=== PATIENT | female | born 1995 | race Two or more races ===

== ENCOUNTER 2018-06-07 08:52 | Emergency (ER) | payer MEDICAID, OTHER ==
--- NOTE | 2018-06-07 10:26 | UC ---
Abdominal Pain Female HPI - HPI Summary HPI Summary: 2 DAYS OF SUPRAPUBIC AND LEFT PELVIC DISCOMFORT. DESCRIBED A BURNING PAIN. DENIES ANY URINARY SYMPTOMS. NO FEVER OR NAUSEA. NO BACK PAIN. NO VAGINAL DISCHARGE. SHE HAS NOT HAD SEX IN OVER 3 MONTHS. HAS A FAMILY HISTORY OF OVARIAN CYSTS. - History of Current Complaint Chief Complaint: EDAbdPain Stated Complaint: PAIN ABOVE PELVIC AREA Time Seen by Provider: 06/07/18 09:37 Hx Obtained From: Patient Hx Last Menstrual Period: 05/14/18 Onset/Duration: Gradual Onset, Lasting Days, Still Present Timing: Constant Severity Initially: Moderate Severity Currently: Moderate Pain Intensity: 6 Pain Scale Used: 0-10 Numeric Location: Discrete At: LLQ, Suprapubic Radiates: No Character: Burning Aggravating Factor(s): Movement Alleviating Factor(s): Nothing Associated Signs and Symptoms: Negative: Diaphoresis, Fever, Back Pain, Constipation, Blood in Stool, Urinary Symptoms, Vaginal Bleeding, Vaginal Discharge, Nausea Allergies/Adverse Reactions: Allergies Allergy/AdvReac Type Severity Reaction Status Date / Time No Known Allergies Allergy Verified 06/07/18 09:06 Home Medications: Home Medications NK [No Home Medications Reported] 06/07/18 [History Confirmed 06/07/18] PMH/Surg Hx/FS Hx/Imm Hx Previously Healthy: Yes - Surgical History Surgical History: Yes Surgery Procedure, Year, and Place: [facility] 2010 - Family History Known Family History: Negative: Hypertension Family History: OVARIAN CYSTS - SISTER - Social History Alcohol Use: None Substance Use Type: None Substance Use Comment - Amount & Last Used: DAILY Smoking Status (MU): Never Smoked Tobacco Review of Systems Constitutional: Negative Skin: Negative Respiratory: Negative Cardiovascular: Negative Gastrointestinal: Abdominal Pain - SUPRAPUBIC Genitourinary: Negative All Other Systems Reviewed And Are Negative: Yes Physical Exam Triage Information Reviewed: Yes Appearance: Well-Appearing, No Pain Distress, Well-Nourished Vital Signs: Initial Vital Signs Temp 98 F 06/07/18 09:00 Pulse 70 06/07/18 09:00 Resp 16 06/07/18 09:00 BP 100/52 06/07/18 09:00 Pulse Ox 100 06/07/18 09:00 Laboratory Tests 06/07/18 06/07/18 09:41 09:43 POC Urine Color Marleni POC Urine Clarity Clear POC Urine pH 7.0 POC Ur Specif [place] 1.020 POC Urine Protein Negative POC Ur Glucose (UA) Negative POC Urine Ketones Negative POC Urine Blood Negative POC Urine Nitrite Negative POC Urine Bilirubin Negative POC Urine Urobilinogen 0.2 POC U Leukocyte Esteras Negative POC Ur Test Negative Vital Signs Reviewed: Yes Eyes: Positive: Conjunctiva Clear ENT: Positive: Hearing grossly normal Neck: Positive: Supple Respiratory Exam: Normal Cardiovascular Exam: Normal Abdomen Description: Positive: Soft, Other: - MILDLY TTP SUPRAPUBIC AND LLQ. Negative: CVA Tenderness (R), CVA Tenderness (L), Distended, Guarding Bowel Sounds: Positive: Present Pelvic Exam: Positive: External Exam Normal, Speculum Exam Normal, Bimanual Exam Normal, No Cerv. Motion Tender, No Masses, Discharge - THIN WHITE D/C IN VAGINAL VAULT Musculoskeletal: Positive: No Edema Neurological: Positive: Alert Psychological: Positive: Age Appropriate Behavior Skin: Negative: rashes Diagnostics - Radiology TRANSVAGINAL US Xray Interpretation: Positive (See Comments) - INVOLUTING FOLLICLE VERSUS HEMORRHAGIC CYST OF LEFT OVARY MEASURING UP TO 1.9 CM. Radiology Interpretation Completed By: Radiologist Abd Pain Female Course/Dx - Differential Dx/Diagnosis Provider Diagnoses: HEMORRHAGIC CYST OF LEFT OVARY Discharge - Sign-Out/Discharge Documenting (check all that apply): Patient Departure All imaging exams completed and their final reports reviewed: Yes - Discharge Plan Condition: Stable Disposition: HOME Patient Education Materials: Ovarian Cyst (ED) Referrals: [facility] [Provider Group] - 2 Weeks Humberto Hay MD [Primary Care Provider] - If Needed Additional Instructions: ULTRASOUND SHOWS INVOLUTING FOLLICLE VERSUS HEMORRHAGIC CYST OF LEFT OVARY. THIS MAY BE CAUSING YOUR DISCOMFORT. OTC MEDS NEEDED FOR PAIN. FOLLOW-UP WITH PCP OR [facility] FOR FURTHER DISCUSSION OF MANAGEMENT. IF SYMPTOMS BECOME RECURRENT YOU MAY CONSIDER HORMONAL CONTROL. VAGINAL SWABS FOR VAGINITIS AND GC/CHLAMYDIA DONE TODAY. WE WILL CALL YOU WITH ANY ABNORMAL RESULTS. - Billing Disposition and Condition Condition: STABLE Disposition: Home
[2018-06-07 11:24] VITALS: BP 102/49
--- NOTE | 2018-06-07 12:22 | RAD ---
HISTORY: PELVIC PAIN COMPARISONS: None TECHNIQUE: Multiple transverse and longitudinal ultrasound images were obtained of the pelvis using grayscale, color Doppler, and spectral Doppler imaging using the endovaginal transducer. FINDINGS: UTERUS: The uterus measures 7. 4 x 4 by 5.8 cm. The uterus is normal in shape, size, contour, and echotexture. ENDOMETRIUM: The endometrial stripe is smooth. The endometrium measures 1.1 cm in thickness. There is an arcuate configuration to the endometrial cavity. CUL-DE-SAC: There is no free fluid within the cul-de-sac. RIGHT OVARY: The right ovary measures 4.1 x 2.2 x 2.8 cm. Normal arterial and venous waveforms are identifiable within the ovary on spectral Doppler imaging. LEFT OVARY: The left ovary measures 4.6 x 2.5 x 3.7 cm. Normal arterial and venous waveforms are identifiable within the ovary on spectral Doppler imaging. There is a 1.9 x 1.6 x 1.2 cm involuting follicle versus hemorrhagic cyst of the left ovary.. BLADDER: The bladder is not well visualized. OTHER: None IMPRESSION: 1. NO SONOGRAPHIC FEATURES OF TORSION. PLEASE NOTE THAT PARTIAL OR INTERMITTENT TORSION MAY BE SONOGRAPHICALLY NORMAL. 2. INVOLUTING FOLLICLE VERSUS HEMORRHAGIC CYST OF LEFT OVARY MEASURING UP TO 1.9 CM.
--- NOTE | 2018-06-08 13:38 | UC ---
- Progress Note Progress Note: PLEASE CALL PATIENT. VAGINAL SWAB POSITIVE FOR BV. METRONIDAZOLE TWICE DAILY FOR [address] [facility]. NO ALCOHOL WHILE ON THIS MEDICATION. - GENE BOATENG M.D. Discharge - Sign-Out/Discharge Documenting (check all that apply): Post-Discharge Follow Up All imaging exams completed and their final reports reviewed: Yes - Discharge Plan Condition: Stable Disposition: HOME Prescriptions: metroNIDAZOLE [Flagyl 500 MG TAB] 500 mg PO BID #14 tab Patient Education Materials: Ovarian Cyst (ED) Referrals: [facility] [Provider Group] - 2 Weeks Humberto Hay MD [Primary Care Provider] - If Needed Additional Instructions: ULTRASOUND SHOWS INVOLUTING FOLLICLE VERSUS HEMORRHAGIC CYST OF LEFT OVARY. THIS MAY BE CAUSING YOUR DISCOMFORT. OTC MEDS NEEDED FOR PAIN. FOLLOW-UP WITH PCP OR [facility] FOR FURTHER DISCUSSION OF MANAGEMENT. IF SYMPTOMS BECOME RECURRENT YOU MAY CONSIDER HORMONAL CONTROL. VAGINAL SWABS FOR VAGINITIS AND GC/CHLAMYDIA DONE TODAY. WE WILL CALL YOU WITH ANY ABNORMAL RESULTS. - Billing Disposition and Condition Condition: STABLE Disposition: Home
== END 2018-06-07 12:43 | disposition home or self-care (01) ==
LOC: UCEAST 08:52
DX: N83.202 Unspecified ovarian cyst, left side (principal)
CPT/HCPCS: 76830; 81003; 84702; 87480; 87491; 87510; 87591; 87661; 99211; G0463

== ENCOUNTER 2019-02-06 09:19 | Emergency (ER) | payer SELFPAY ==
[2019-02-06 09:27] VITALS: BP 112/72
[2019-02-06] MEDS ORDERED: Ondansetron INJ* 2 MG/ML VIAL IV ONE (09:39)
[2019-02-06] MEDS ORDERED: NS 0.9% 1000 ML** 1,000 ML IV ONE (09:39)
--- NOTE | 2019-02-06 09:44 | UC ---
Abdominal Pain Female HPI - HPI Summary HPI Summary: 23-year-old woman comes in with chief complaint of lower abdominal pain heavy vaginal bleeding nausea vomiting. This all started this morning. Patient gives no history. She is awake and follows commands and will stand however she does not answer questions. This appears to be secondary to pain. Her partner is here with her and he does give history.. - History of Current Complaint Chief Complaint: UCAbdominalPain Stated Complaint: VOMITING Time Seen by Provider: 02/06/19 09:36 Hx Last Menstrual Period: now Pain Intensity: 8 Allergies/Adverse Reactions: Allergies Allergy/AdvReac Type Severity Reaction Status Date / Time No Known Allergies Allergy Verified 02/06/19 09:27 Home Medications: Home Medications NK [No Home Medications Reported] 02/06/19 [History Confirmed 02/06/19] PMH/Surg Hx/FS Hx/Imm Hx Previously Healthy: Yes - Surgical History Surgical History: Yes Surgery Procedure, Year, and Place: [facility] 2010 - Family History Known Family History: Positive: None Negative: Hypertension Family History: OVARIAN CYSTS - SISTER - Social History Alcohol Use: Occasionally Substance Use Type: None Substance Use Comment - Amount & Last Used: DAILY Smoking Status (MU): Never Smoked Tobacco Review of Systems All Other Systems Reviewed And Are Negative: No Constitutional: Positive: Other - SEE HPI PATIENT. NOT ANSWERING QUESTIONS; LEVEL 5 CAVEAT Gastrointestinal: Positive: Abdominal Pain Is Patient Immunocompromised?: No Physical Exam Triage Information Reviewed: Yes Appearance: Well-Nourished, Ill-Appearing, Pain Distress Vital Signs: Initial Vital Signs Temp 97.1 F 02/06/19 09:22 Pulse 67 02/06/19 09:22 Resp 20 02/06/19 09:22 BP 112/72 02/06/19 09:22 Pulse Ox 100 02/06/19 09:22 Vital Signs Reviewed: Yes Neck: Positive: Supple Respiratory: Positive: Lungs clear, Normal breath sounds Cardiovascular: Positive: RRR Abdomen Description: Positive: Other: - TENDER LOWER ABD Bowel Sounds: Positive: Hypoactive Musculoskeletal: Positive: ROM Intact Neurological: Positive: Fatigued, Other: - ABLE TO SPEAK, KEEPS EYES CLOSED Psychological: Positive: Age Appropriate Behavior Skin: Positive: Other - PALE Abd Pain Female Course/Dx - Course Course Of Treatment: In clinic an IV was started the patient was given IV Zofran and normal saline was started. She was transported to the hospital emergency department by ambulance. - Differential Dx/Diagnosis Provider Diagnosis: Abdominal pain, Abnormal vaginal bleeding Discharge - Sign-Out/Discharge Documenting (check all that apply): Patient Departure All imaging exams completed and their final reports reviewed: No Studies - Discharge Plan Condition: Stable Disposition: TRANS HIGHER LVL OF CARE FAC Referrals: Humberto Hay MD [Primary Care Provider] - - Billing Disposition and Condition Condition: STABLE Disposition: Trans Higher Lvl of Care Fac
== END 2019-02-06 10:10 | disposition short-term general hospital (02) ==
LOC: UCEAST 09:19
DX: R10.30 Lower abdominal pain, unspecified (principal); N93.8 Other specified abnormal uterine and vaginal bleeding; R11.2 Nausea with vomiting, unspecified
CPT/HCPCS: 96361; 96374; 99213; G0463; J2405

== ENCOUNTER 2019-02-06 10:21 | Emergency (ER) | payer BC ==
[2019-02-06] MEDS ORDERED: Ketorolac INJ* 30 MG/ML 1 ML VIAL IV ONE (10:30)
[2019-02-06] MEDS ORDERED: Ondansetron INJ* 2 MG/ML VIAL IV ONE (10:30)
[2019-02-06] MEDS ORDERED: NS 0.9% 1000 ML** 1,000 ML IV ONE ×2 (10:30→12:09)
--- NOTE | 2019-02-06 10:34 | ED ---
Abdominal Pain/Female - HPI Summary HPI Summary: The patient is a 23 y/o F presenting to [facility] arriving by ambulance with a chief complaint of sudden onset severe pelvic pain starting this morning. She states that she woke up around 0700 and the pain began, but she isn't sure if she woke up because the pain woke her up. The sharp pain is currently rated 8/ 10 in severity. The pain does not radiate, and there are no aggravating or alleviating factors. She additionally c/o nausea, vomiting, and BLE numbness. She denies vaginal discharge. LNMP: current. No PMHx. No FHx. Nonsmoker, no EtOH , no substance use. - History of Current Complaint Stated Complaint: VOMITING PER EMS Time Seen by Provider: 02/06/19 10:24 Hx Obtained From: Patient Hx Last Menstrual Period: now Onset/Duration: Sudden Onset, Lasting Hours, Still Present Timing: Constant Severity Initially: Severe Severity Currently: Severe Pain Intensity: 8 Pain Scale Used: 0-10 Numeric Location: Other - pelvic Radiates: No Character: Sharp Aggravating Factor(s): Nothing Alleviating Factor(s): Nothing Associated Signs and Symptoms: Positive: Nausea, Vomiting, Other: - numbness in BLE. Negative: Vaginal Discharge Allergies/Adverse Reactions: Allergies Allergy/AdvReac Type Severity Reaction Status Date / Time No Known Allergies Allergy Verified 02/06/19 09:27 PMH/Surg Hx/FS Hx/Imm Hx Endocrine/Hematology History: Denies: Hx Diabetes, Hx Thyroid Disease Cardiovascular History: Denies: Hx Hypercholesterolemia, Hx Hypertension Respiratory History: Denies: Hx Asthma, Hx Chronic Obstructive Pulmonary Disease (COPD) GI History: Denies: Hx Ulcer - Surgical History Surgery Procedure, Year, and Place: [facility] 2010 Infectious Disease History: Denies: Hx Clostridium Difficile, Hx Hepatitis, Hx Human Immunodeficiency Virus (HIV), Hx of Known/Suspected MRSA, Hx Shingles, Hx Tuberculosis, Hx Known/ Suspected VRE, Hx Known/Suspected VRSA, History Other Infectious Disease - Family History Known Family History: Negative: Cardiac Disease, Hypertension, Diabetes Family History: OVARIAN CYSTS - SISTER - Social History Alcohol Use: Occasionally Hx Substance Use: Yes Substance Use Type: Reports: None Substance Use Comment - Amount & Last Used: DAILY Hx Tobacco Use: No Smoking Status (MU): Never Smoked Tobacco Do You Chew or Dip Tobacco: No Have You Chewed or Dipped Tobacco in the LAST YEAR: No Have You Smoked in the Last Year: No Review of Systems Positive: Abdominal Pain - pelvic, Vomiting, Nausea Positive: other - NEGATIVE: vaginal discharge Positive: Numbness - BLE All Other Systems Reviewed And Are Negative: Yes Physical Exam - Summary Physical Exam Summary: VITAL SIGNS: Reviewed. GENERAL: Patient is a well-developed and nourished female who is lying uncomfortable in the stretcher in distress secondary to pain. Patient is not in any acute respiratory distress. HEAD AND FACE: Normocephalic and atraumatic. EYES: PERRLA, EOMI x 2, No injected conjunctiva. EARS: Hearing grossly intact. Ear canals and tympanic membranes are WNL. MOUTH: Oropharynx within normal limits. NECK: Supple, trachea is midline, no adenopathy, no JVD. CHEST: Symmetric, no tenderness at palpation LUNGS: Clear to auscultation bilaterally. No wheezing or crackles. CVS: RRR, S1 and S2 present, no murmurs or gallops appreciated. ABDOMEN: Soft, pain mostly in the left pelvic area. No signs of distention. Positive bowel sounds. No rebound no guarding, and no masses palpated. No abdominal bruit or pulsations. EXTREMITIES: FROM in all major joints, no edema, no cyanosis or clubbing. NEURO: Alert and oriented x 3. No acute neurological deficits. Speech is normal. SKIN: Dry and warm Triage Information Reviewed: Yes Vital Signs Reviewed: Yes Diagnostics - Laboratory Result Diagrams: 02/06/19 10:45 02/06/19 10:45 Lab Statement: Any lab studies that have been ordered have been reviewed, and results considered in the medical decision making process. - Ultrasound No standard instances Ultrasound Interpretation Completed By: Radiologist Summary of Ultrasound Findings: Transvaginal US: Unremarkable pelvic ultrasound. Trace free fluid in the cul-de-sac. ED physician has reviewed this report. Re-Evaluation - Re-Evaluation First Eval Re-Evaluation Time: 14:00 Change: Improved Comment: Patient states she has improved with treatment here. We discussed results and discharge home. Abdominal Pain Fem Course/Dx - Course Course Of Treatment: The patient is a 23 y/o F presenting to [facility] arriving by ambulance with a chief complaint of sudden onset severe pelvic pain starting this morning. She states that she woke up around 0700 and the pain began, but she isn't sure if she woke up because the pain woke her up. The sharp pain is currently rated 8/10 in severity. The pain does not radiate, and there are no aggravating or alleviating factors. She additionally c/o nausea, vomiting, and BLE numbness. She denies vaginal discharge. LNMP: current. No PMHx. No FHx. Nonsmoker, no EtOH, no substance use. Blood work without any significant abnormality except for WBCs of 13.7, potassium level of 3.4, carbon dioxide of 18, glucose of 106, and lactic acid of 0.6. Beta hCG is negative for . Urinalysis is negative for UTI. Pelvic ultrasound impression: Unremarkable pelvic ultrasound. Trace fluid in the cul-de-sac. In the ED course the patient was given IV fluids, she was given Zofran for nausea and for the pain. At reassessment, the patient reports that the pain is resolved, and she has no pain. However she still a little bit nauseous, therefore she was given a dose of Reglan. After medications, the patients symptoms have improved. The patient is no longer nauseous. The patient is able to inquire without any nausea or vomiting. The repeat lactic acid is 1.7, therefore the patient will be discharged home with follow-up with primary care physician. Patient will be given a prescription for Reglan for at home. I discussed all the findings and test results with the patient. Patient was instructed to return to the emergency room immediately if any of the symptoms return worsens. Plan of care was discussed with the patient and understands and agrees. All questions were answered at patient satisfaction. There were no further complaints or concerns. Lung exam before discharge: CTA B/L. Good air exchange. No wheezing or crackles heard. CVS: S1 and S2 present. No murmurs appreciated. Patient is alert and oriented x 3. Patient is hemodynamically stable. Patient will be discharged home with follow up PCP in the next 2-3 days. - Diagnoses Provider Diagnoses: Pelvic pain, Menstrual cramp, Nausea and vomiting Discharge - Sign-Out/Discharge Documenting (check all that apply): Patient Departure - Patient will be discharged home. Patient Received Moderate/Deep Sedation with Procedure: No - Discharge Plan Condition: Stable Disposition: HOME Prescriptions: Metoclopramide TAB* [Reglan TAB*] 10 mg PO Q8H PRN #10 tab PRN Reason: Nausea Patient Education Materials: Acute Nausea and Vomiting (ED), Pelvic Pain in Women (ED) Referrals: Humberto Hay MD [Primary Care Provider] - 3 Days Additional Instructions: FOLLOW UP WITH YOUR PRIMARY CARE PROVIDER WITHIN ONE WEEK. RETURN TO THE ED FOR ANY WORSENING OR NEW SYMPTOMS. - Billing Disposition and Condition Condition: STABLE Disposition: Home - Attestation Statements Document Initiated by Austin: Yes Documenting Scribe: Neeru Escobar Provider For Whom Austin is Documenting (Include Credential): Dr. Ryan Kraus MD Scribe Attestation: Neeru Vu scribed for Dr. Ryan Kraus MD on 02/06/19 at 2142. Scribe Documentation Reviewed: Yes Provider Attestation: The documentation as recorded by the Neeru taylor accurately reflects the service I personally performed and the decisions made by me, Dr. Ryan Kraus MD Status of Scribe Document: Viewed
[2019-02-06 11:11] LABS: ABS Lymphocytes 1.1 10^3/ul (1.0-4.8); ABS Monocytes 0.7 10^3/ul (0-0.8); ABS Neutrophils 11.8 10^3/ul (1.5-7.7); Eosinophil % 0.1 %; Hematocrit 40 % (35-47); Hemoglobin 13.5 g/dL (12.0-16.0); Lymphocyte % 8.2 %; Mean Corpuscular HGB Conc 33 g/dL (31-36); Mean Corpuscular Hemoglobin 33 pg (27-31); Mean Corpuscular Volume 98 fL (80-97); Mean Platelet Volume 10.4 fL (7.4-10.4); Nucleated Red Blood Cells % 0.1; Platelet Count 179 10^3/uL (150-450); Red Blood Count 4.12 10^6 /uL (3.70-4.87); Red Cell Distribution Width 13 % (10.5-15); White Blood Count 13.7 10^3/uL (3.5-10.8)
[2019-02-06 11:21] LABS: Urine Appearance Clear; Urine Bacteria Absent (Absent); Urine Bilirubin Negative (Negative); Urine Blood 2+ (Negative); Urine Color Yellow; Urine Glucose Negative (Negative); Urine Ketones 1+ (Negative); Urine Nitrite Negative (Negative); Urine Protein Negative (Negative); Urine Red Blood Cell Trace(0-2/hpf) (Absent); Urine Specific Gravity 1.018 (1.010-1.030); Urine Squamous Epithelial Cell Present (Absent); Urine Urobilinogen Negative (Negative); Urine White Blood Cell Trace(0-5/hpf) (Absent)
[2019-02-06 11:32] LABS: HCG Pregnancy < 0.60 mIU/mL
[2019-02-06 11:38] LABS: ALT 9 U/L (7-52); AST 15 U/L (13-39); Albumin 4.4 g/dL (3.2-5.2); Albumin/Globulin Ratio 1.6 (1-3); Alkaline Phosphatase 45 U/L (34-104); Anion Gap 11 mmol/L (2-11); Blood Urea Nitrogen 8 mg/dL (6-24); C Reactive Protein < 1.00 mg/L (<8.01); CO2 Carbon Dioxide 18 mmol/L (22-32); Calcium 8.8 mg/dL (8.6-10.3); Chloride 111 mmol/L (101-111); EGFR African American 157.7 (>60); EGFR Non-African American 130.3 (>60); Globulin 2.8 g/dL (2-4); Glucose 106 mg/dL (70-100); Potassium 3.4 mmol/L (3.5-5.0); Sodium 140 mmol/L (135-145); Total Protein 7.2 g/dL (6.4-8.9)
[2019-02-06] MEDS ORDERED: Metoclopramide IV* 5 MG/ML 2 ML VIAL IV ONE (12:09)
[2019-02-06] MEDS ORDERED: Potassium Chlor TAB* 20 MEQ TAB.ER PO ONE (12:15)
[2019-02-06 14:09] VITALS: BP 136/72
== END 2019-02-06 14:08 | disposition home or self-care (01) ==
LOC: ED 10:21
DX: R10.2 Pelvic and perineal pain (principal); R11.2 Nausea with vomiting, unspecified; N94.6 Dysmenorrhea, unspecified
CPT/HCPCS: 36415; 76830; 80053; 81003; 81015; 83605; 83690; 84702; 85025; 86140; 87086; 96361; 96374; 96375; 99283; A9270-GY; J1885; J2405; J2765

== ENCOUNTER 2022-04-22 23:21 | Inpatient (IN) ==
[2022-04-23] MEDS ORDERED: Buffered Lidocaine 1% SYRIN 1 ml INTRADERM ONE (00:35)
[2022-04-23] MEDS ORDERED: Lactated Ringers 1000 ml BAG 1,000 ML IV ONE ×2 (00:35→12:37)
[2022-04-23] MEDS ORDERED: Lactated Ringers 1000 ml BAG 1,000 ML IV SCH ×2 (01:00→13:00)
[2022-04-23] MEDS ORDERED: Promethazine INJ(RESTRICTED) 25 MG/ML 1 ml VIAL IV PRN (01:58)
[2022-04-23] MEDS ORDERED: Nalbuphine 10 MG/ML 1 ML VIAL IV PRN (01:58)
[2022-04-23 02:08] LABS: ABS Eosinophils 0.1 10^3/ul (0-0.6); ABS Lymphocytes 2.5 10^3/ul (1.0-4.8); ABS Monocytes 0.7 10^3/ul (0-0.8); ABS Neutrophils 10.6 10^3/ul (1.5-7.7); Eosinophil % 0.5 %; Hematocrit 33 % (35-47); Hemoglobin 11.2 g/dL (12.0-16.0); Lymphocyte % 18.2 %; Mean Corpuscular HGB Conc 34 g/dL (31-36); Mean Corpuscular Hemoglobin 33 pg (27-31); Mean Corpuscular Volume 95 fL (80-97); Mean Platelet Volume 9.6 fL (7.4-10.4); Platelet Count 204 10^3/uL (150-450); Red Blood Count 3.45 10^6 /uL (3.70-4.87); Red Cell Distribution Width 14 % (10-15)
[2022-04-23 02:22] LABS: Urine Benzodiazepine Screen None Detected (None Detect); Urine Cannabinoids Screen Presumptive Positive (None Detect); Urine Opiates Screen None Detected (None Detect)
[2022-04-23] MEDS ORDERED: Ondansetron 4 mg VIAL 2 MG/ML 2 ml VIAL IV PRN (07:04)
[2022-04-23] MEDS ORDERED: OBEPIDURAL (200 ML) 200 ML EPIDURAL ONE (10:33)
[2022-04-23] MEDS ORDERED: Lidocaine 1% w EPI 1:200,000 SDV 30 ML VIAL ONE (10:33)
[2022-04-23 12:19] LABS: Urine Appearance Clear; Urine Bilirubin Negative (Negative); Urine Color Straw; Urine Glucose Negative (Negative); Urine Ketones Trace (Negative)
[2022-04-23 12:20] LABS: Urine Nitrite Negative (Negative); Urine Protein Negative (Negative); Urine Urobilinogen 0.2 (Negative) (Negative)
[2022-04-23] MEDS ORDERED: Phenylephrine 40 mcg/mL 10mL (400mcg) SYRINGE IV PUSH PRN ×2 (12:37)
[2022-04-23] MEDS ORDERED: Sodium Citrate/Citric Acid LIQ 15 ML UDC PO PRN (12:37)
[2022-04-23 12:49] LABS: Urine Bacteria 1+ (Absent); Urine Red Blood Cell 1+(3-5/hpf) (Absent); Urine Squamous Epithelial Cell Present (Absent); Urine White Blood Cell Trace(0-5/hpf) (Absent)
[2022-04-23] MEDS ORDERED: OBEPIDURAL (200 ML) 200 ML EPIDURAL SCH (13:00)
[2022-04-23] MEDS ORDERED: Oxytocin in LR 20,000 MILLI.UNIT/1,000 ML BAG IV ONE (21:48)
[2022-04-23] MEDS ORDERED: Dibucaine 1% OINT 28.35 GM TUBE PR PRN (22:00)
[2022-04-23] MEDS ORDERED: Glycerin ADULT 2.4 gm SUPP PR PRN (22:00)
[2022-04-23] MEDS ORDERED: Witch Hazel PAD JAR TOPICAL PRN (22:00)
[2022-04-24 06:24] LABS: ABS Basophils 0.1 10^3/ul (0-0.2); ABS Lymphocytes 2.3 10^3/ul (1.0-4.8); ABS Monocytes 0.9 10^3/ul (0-0.8); ABS Neutrophils 14.7 10^3/ul (1.5-7.7); Eosinophil % 0.1 %; Hematocrit 26 % (35-47); Hemoglobin 9.1 g/dL (12.0-16.0); Lymphocyte % 12.7 %; Mean Corpuscular HGB Conc 35 g/dL (31-36); Mean Corpuscular Hemoglobin 33 pg (27-31); Mean Corpuscular Volume 95 fL (80-97); Mean Platelet Volume 9.6 fL (7.4-10.4); Platelet Count 172 10^3/uL (150-450); Red Blood Count 2.76 10^6 /uL (3.70-4.87); Red Cell Distribution Width 14 % (10-15)
[2022-04-25 09:31] VITALS: BP 123/61
== END 2022-04-25 17:53 | disposition home or self-care (01) | DRG 560 ==
LOC: MCHOBOUT 23:21 → MCHOB 04-23 00:34
PROVIDERS: ADMIT Midwife; ATTEND Midwife